=== PATIENT | female | born 1955 | race Two or more races ===

== ENCOUNTER 2024-07-09 12:50 | Outpatient (RCR) | payer MEDICAID, SELFPAY | END 2024-07-31 23:59 | disposition home or self-care (01) | LOC: SCTC 12:50 | PROVIDERS: PCP Physician Assistant; Referring Provider Physician Assistant; Visit Provider Nurse Practitioner Family | DX: D69.6 Thrombocytopenia, unspecified (principal); Z94.4 Liver transplant status | CPT/HCPCS: 99213; G0463 ==

== ENCOUNTER 2024-07-15 13:50 | Emergency (ER) | payer MEDICAID, SELFPAY ==
[2024-07-15 14:08] VITALS: BP 120/77; PULSE 65; RESP 18; TEMP 36.8; O2SAT 96
--- NOTE | 2024-07-15 14:17 | PD.EDRME ---
Rapid Medical Screening Exam RME Arrival date/time: 07/15/24 13:50 Chief Complaint: Back Pain/Injury Time Seen by Provider: 07/15/24 14:04 Vital signs: Vital Signs Temperature 98.2 F 07/15/24 14:08 Pulse Rate 65 07/15/24 14:08 Respiratory Rate 18 07/15/24 14:08 Blood Pressure 120/77 07/15/24 14:08 Pulse Oximetry (%) 96 07/15/24 14:08 Oxygen Delivery Method Room Air 07/15/24 14:08 RME Narrative: 69-year-old female presents to the ED with an 8-day history of low back pain. She denies any injury to the back or fall. She denies any numbness or tingling to her lower extremities. She also denies any fever, chills, nausea, vomiting, diarrhea or abdominal pain. She denies dysuria or frequency. She was seen by her primary care physician on the eighth who wanted to order lumbar x-rays however due to insurance issues it has not been performed.
--- NOTE | 2024-07-15 14:34 | XR_ITS ---
Examination: Lumbar spine 3 views Technique one AP lateral coned lateral lower lumbar spine 3 views Exam date and time: July 15, 2024 1459 hours INDICATIONS: Low back pain months. FINDINGS: Grade 1 anterolisthesis L4 on L5 No lumbar fracture Diffuse moderate to advanced lumbar degenerative disc disease most prominent L5-S1 IMPRESSION: No lumbar fracture Diffuse moderate to advanced lumbar degenerative disc disease, most prominent at L5-S1
[2024-07-15 15:45] LABS: Collection Type, Urine Clean Catch
[2024-07-15 16:03] LABS: Bilirubin,Urine Negative (Negative); Blood,Urine Negative (Negative); Clarity,Urine Clear (Clear/Hazy); Glucose, Urine 4+ (Negative); Ketones,Urine Negative (Negative); Leukocyte Esterase,Urine Positive (Negative); Nitrite,Urine Negative (Negative); PH,Urine 5.5 (5.0-7.0); Protein,Urine Negative (Neg - Trace); RBC,Urine < 1 /hpf (0-3); Specific Gravity,Urine 1.001 (1.001-1.035); Squamous Epithelial Cell,Urine < 1 /hpf (0-5); Urobilinogen,Urine Negative mg/dL (0.0-1.0); WBC,Urine 11 /hpf (0-5)
[2024-07-15 16:13] LABS: Color,Urine Lt-Yellow (Lt Yel-Yel); Culture Indicated,Urine Yes
--- NOTE | 2024-07-15 16:20 | PD.EDBACK ---
ED Back Injury Pain RME/HPI General Chief Complaint: Back Pain/Injury Stated Complaint: sent by pmd for xray, c/o lower back pain x 8d Time Seen by Provider: 07/15/24 14:04 Arrival date/time: 07/15/24 13:50 Limitations: no limitations RME / HPI RME / HPI Narrative: 69-year-old female presents to the ED with an 8-day history of low back pain. She denies any injury to the back or fall. She denies any numbness or tingling to her lower extremities. She also denies any fever, chills, nausea, vomiting, diarrhea or abdominal pain. She denies dysuria or frequency. She was seen by her primary care physician on the eighth who wanted to order lumbar x-rays however due to insurance issues it has not been approved or performed. Related Data Previous Rx's ?Medication ?Instructions ?Recorded cephalexin 500 mg capsule 500 mg PO BID #14 caps 07/15/24 naproxen 500 mg tablet (Naprosyn) 500 mg PO BID PRN pain #14 tabs 07/15/24 Allergies Allergy/AdvReac Type Severity Reaction Status Date / Time NKA* Allergy Uncoded 07/15/24 13:55 Review of Systems Review of Systems Systems Reviewed: All systems reviewed, normal except as documented Past Medical History Social History SMOKING STATUS: Never smoker ED Exam General Limitations: Present no limitations General appearance: Present alert Head Head exam: Present atraumatic and normocephalic Eye Eye exam: Present normal appearance; Absent scleral icterus or conjunctival injection ENT ENT exam: Present normal exam Neck Neck exam: Present normal inspection Chest Chest inspection: Present normal inspection Respiratory Respiratory exam: Absent respiratory distress Cardiovascular Cardiovascular exam: Present regular rate and normal rhythm Abdominal Exam Abdominal exam: Absent distention Extremities Exam Extremities exam: Present normal inspection Back Exam Back exam: Present normal inspection and full ROM; Absent tenderness, CVA tenderness (R) or CVA tenderness (L) Neurological Exam Neurological exam: Present alert and oriented X3; Absent motor sensory deficit Psychiatric Psychiatric exam: Present normal affect and normal mood Skin Skin exam: Present warm, dry, intact and normal color Course Course Course Narrative: 69-year-old female presents to the ED with an 8-day history of low back pain. She denies any injury to the back or fall. She denies any numbness or tingling to her lower extremities. She also denies any fever, chills, nausea, vomiting, diarrhea or abdominal pain. She denies dysuria or frequency. She was seen by her primary care physician on the eighth who wanted to order lumbar x-rays however due to insurance issues it has not been approved or performed. Exam reveals alert and oriented 69-year-old female, no acute distress. Lungs are clear, regular rate and rhythm without murmurs, abdomen is soft and nontender, no C-spine or T-spine point tenderness or paraspinal tenderness. Mild L-spine and paraspinal tenderness noted. No CVA tenderness bilaterally. Negative straight leg raise. Equal pedal push/pull. CMS intact to bilateral lower extremities. Quality Measures none Orders Category Date Time Status XR lumbar spine 2-3V Stat Exams 07/15/24 14:34 Completed Urinalysis, C/S if Indicated Stat Lab 07/15/24 15:17 Completed Urine Culture Stat Lab 07/15/24 15:17 Completed Naproxen [Naprosyn] Med 07/15/24 17:11 Discontinued 500 mg PO X1 ONE Vital Signs Vital signs: Vital Signs Temperature 98.2 F 07/15/24 14:08 Pulse Rate 65 07/15/24 14:08 Respiratory Rate 18 07/15/24 14:08 Blood Pressure 120/77 07/15/24 14:08 Pulse Oximetry (%) 96 07/15/24 14:08 Oxygen Delivery Method Room Air 07/15/24 14:08 Back Pain / Injury MDM Narrative MDM Narrative:: 69-year-old female presents to the ED with an 8-day history of low back pain. She denies any injury to the back or fall. She denies any numbness or tingling to her lower extremities. She also denies any fever, chills, nausea, vomiting, diarrhea or abdominal pain. She denies dysuria or frequency. She was seen by her primary care physician on the eighth who wanted to order lumbar x-rays however due to insurance issues it has not been approved or performed. Exam reveals alert and oriented 69-year-old female, no acute distress. Lungs are clear, regular rate and rhythm without murmurs, abdomen is soft and nontender, no C-spine or T-spine point tenderness or paraspinal tenderness. Mild L-spine and paraspinal tenderness noted. No CVA tenderness bilaterally. Negative straight leg raise. Equal pedal push/pull. CMS intact to bilateral lower extremities. Lumbar spine x-ray reveals no lumbar fracture. Diffuse moderate to advanced lumbar degenerative disc disease most prominent at L5-S1. Urinalysis reveals clear light yellow urine with a specific gravity 1.01 with 4+ glucose, positive leukocyte esterase, 11 WBCs and no bacteria. Patient data External records reviewed:: None Clinical information provided by:: patient Social determinants that could affect healthcare access:: none Patient has the following chronic illnesses:: N/A How is presenting disease/condition affected by chronic disease/condition?: no chronic disease Evaluation data The following diagnostics were reviewed and interpreted by me:: radiology exam(s) Lab and/or radiology exams considered but not ordered:: N/A Interpretation Summary: XR Lumbar Spine: FINDINGS: Grade 1 anterolisthesis L4 on L5 No lumbar fracture Diffuse moderate to advanced lumbar degenerative disc disease most prominent L5-S1 IMPRESSION: No lumbar fracture Diffuse moderate to advanced lumbar degenerative disc disease, most prominent at L5-S1 Medications / Prescriptions Medications or Prescriptions considered but not ordered:: N/A Medication administrations:: Medication Administration History Discontinued Medications Naproxen (Naproxen 250 Mg Tablet) 500 mg PO X1 ONE Stop: 07/15/24 17:12 Last Admin: 07/15/24 17:30 Dose: 500 mg Documented By: JAMIE Naproxen 500 mg p.o. Consultations Consultation(s) initiated? (list below): No Diagnosis Differential diagnosis back pain/injury: lumbar radiculopathy, sciatica and strain of lumbar region Most likely diagnosis given after review of the tests above:: Strain of lumbar region, UTI Admission Indicated Admission indicated?: not indicated Explain why admission is indicated or not indicated:: Patient is stable for discharge Admission Request Was there a request for admission?: No Disposition Plan Disposition Plan: Discharge Discharge Attestation Discharge Attestation: The patient and all family members were given an opportunity to ask questions and understood the discharge instructions. Discharge instructions specifically effects, indications for sooner follow up or return to the emergency department, and the expected course of current diagnosis. Patient condition: Stable Discharge Plan Plan Patient Disposition: HOME (Self Care) Discharge Disposition comment: Stable Prescriptions/Referrals Prescriptions/Med Rec: New cephalexin 500 mg capsule 500 mg PO BID Qty: 14 0RF naproxen [Naprosyn] 500 mg tablet 500 mg PO BID PRN (Reason: pain) Qty: 14 0RF Referrals: Michael Molina MD [Primary Care Provider] - In 1 week Problem List Clinical Impression: Strain of lumbar region, Urinary tract infection Patient/Caregiver Discharge Instructions Education Materials: ED Back Sprain/Strain, ED CYSTITIS Female Adult Additional Instructions: Follow-up with your primary care physician in 24 to 48 hours. Return to the ED for any new or worsening symptoms. Print Language: Croatian Stand Alone Forms: Le Award Info., Patient Portal Info Letter PA/HEAD CORRECTION OFFICER Supervising Physician PA/HEAD CORRECTION OFFICER Supervising Physician: Dr. Juárez
[2024-07-15] MEDS: NAPROXEN 250 MG TABLET 500 MG PO (17:30)
== END 2024-07-15 17:39 | disposition home or self-care (01) ==
PROVIDERS: Physician Assistant; Emergency Provider Emergency Medicine; PCP Family Medicine
DX: S39.012A Strain of muscle, fascia and tendon of lower back, initial encounter (principal); N39.0 Urinary tract infection, site not specified; X58.XXXA Exposure to other specified factors, initial encounter
CPT/HCPCS: 72100; 81001; 87086; 99283; A9270

== ENCOUNTER 2024-08-15 14:35 | Outpatient (RCR) | payer MEDICAID, SELFPAY | END 2024-08-31 23:59 | disposition home or self-care (01) | LOC: SCTC 14:35 | PROVIDERS: PCP Physician Assistant; Referring Provider Physician Assistant; Visit Provider Nurse Practitioner Family | DX: D69.6 Thrombocytopenia, unspecified (principal); Z94.4 Liver transplant status | CPT/HCPCS: 99212; G0463 ==